=== PATIENT | female | born 1945 | race Caucasian/White ===

== ENCOUNTER 2016-09-26 20:25 | Emergency (ER) | payer MEDICARE, OTHER ==
--- NOTE | ~2016-09-26 | ER ---
PATIENT'S NAME: EVIE KERNH Adrianne [facility] AGE: 70 Y [address] ROOM: [place] [address] LOCATION: [facility] ADMIT DATE: 09/26/2016 ER/Outpatient Report DISCHARGE DATE: 09/26/2016 FAMILY PHYSICIAN: Juno Gunderson MD ATTENDING PHYSICIAN: Corey Paiz Admission date and time documented on the medical record. I saw the patient at 2040 hours. CHIEF COMPLAINT: Low back pain. HISTORY OF PRESENT ILLNESS: The patient is a 70-year-old female, who since this past Wednesday has had low back pain. No fall or trauma. No lifting, pushing, pulling, or any other incident that she remembers that flared this up. She has no pain into her buttocks or down her legs. No bowel problems. No urinary troubles. No history of previous back operations. No recent colds, coughs, flus, fever, chills, or sweats. No lightheadedness, dizziness, syncope, or near syncope. No headache, eyes, ears, nose, throat, neck pain. No chest pain, shortness of breath. No joint or muscle swelling, redness, or pain. No skin eruptions or rash. No urinary symptoms. No history of neuro changes, psych issues. Does have hypothyroidism but no diabetes. HOME MEDICATIONS: See attached medication list. ALLERGIES: LATEX, NOVOCAIN. SOCIAL HISTORY: Nonsmoker, nondrinker. SIGNIFICANT PAST MEDICAL HISTORY: Hypertension, hypothyroidism, herpes zoster, bilateral wrist fracture. OPERATIONS: Colonoscopy, thumb surgery, left breast biopsy, hysterectomy, appendectomy. REVIEW OF SYSTEMS: All systems reviewed by me are negative with the exception of those discussed in history of present illness. PHYSICAL EXAMINATION: VITAL SIGNS: Temperature 98.7 tympanic, pulse 95, respirations 20, O2 PATIENT'S NAME: EVIE KERNH Adrianne [facility] AGE: 70 Y [address] ROOM: [place] [address] LOCATION: [facility] ADMIT DATE: 09/26/2016 ER/Outpatient Report DISCHARGE DATE: 09/26/2016 FAMILY PHYSICIAN: Juno Gunderson MD ATTENDING PHYSICIAN: Corey Paiz saturation on room air is 99%. Blood pressure 153/94. HEAD: Normocephalic. EYES, EARS, NOSE, THROAT: Clear. LUNGS: Clear. HEART: Regular. ABDOMEN: Soft, nontender. Good bowel tones. MUSCULOSKELETAL: Neck, upper back intact. Lower back range of motion is good, but she has tenderness over lumbar paraspinal muscles. No buttock or sciatic notch pain. Straight leg raising negative. Extremities intact. Neurovascularly intact. SKIN: Clear. LABORATORY DATA AND X-RAYS: CT scan of the lumbar spine showed degenerative changes, no acute changes. CT scan was read by Radiology, see dictated transcribed report. Urine showed 10- 20 whites, 2-5 reds, full-field epithelial cells, few bacteria per high- powered field. IMPRESSION: Low back pain, muscular in etiology. PLAN: The patient was given Dilaudid 1 mg IM, Valium 5 mg IM, and Solu-Medrol 125 mg IM in the emergency department. Dismissed home. Observation. Activity as tolerated. Avoid lifting, pushing, pulling. Continues home medications and care. Ice, heat, or combination to sore areas intermittently as needed. Medrol Dosepak take as directed. Physical therapy if needed. Follow up with personal physician in 7-10 days or sooner if needed. MD ALLISON LOCK/modl /[id number] d: 09/27/169 t: 09/27/161810, OUTPATIENT REPORT
[2016-09-26 20:51] LABS: BILIRUBIN URINE NEGATIVE (NEGATIVE); BLOOD URINE NEGATIVE /UL (NEGATIVE); COLOR URINE YELLOW (YELLOW); GLUCOSE URINE NEGATIVE (NEGATIVE); KETONE URINE NEGATIVE (NEGATIVE); LEUKOCYTES URINE 100 /UL (NEGATIVE); NITRITE URINE NEGATIVE (NEGATIVE); PH URINE 6.5 (4.0-8.0); PROTEIN URINE NEGATIVE (NEGATIVE); SPEC GRAVITY URINE 1.015 (1.003-1.035); TURBIDITY URINE 1+ (CLEAR); UROBILINOGEN URINE NORMAL (NORMAL)
[2016-09-26 21:02] LABS: BACTERIA URINE FEW (NEGATIVE); EPITHELIAL URINE FULL FIELD #/HPF (NEGATIVE)
== END 2016-09-26 22:57 | disposition disaster alternative care site (69) ==
LOC: GMED 20:25
PROVIDERS: Emergency Medicine
DX: M54.5 Low back pain (principal); I10 Essential (primary) hypertension; E03.9 Hypothyroidism, unspecified; Z91.040 Latex allergy status; Z90.710 Acquired absence of both cervix and uterus; Z90.49 Acquired absence of other specified parts of digestive tract
CPT/HCPCS: J1170; J2930; J3360